=== PATIENT | female | born 1960 | race African-American/Black ===

== ENCOUNTER → 2016-09-23 | Outpatient (CLI) | payer OTHER ==
[~2016-09-23] MED LIST: FURO1TAB62 PO; HYDR-3534 PO; LOSA25TA PO; MEDR4PAK PO; ROBA500T PO; SIMV40TA PO
[2016-09-23 07:14] LABS: BICARBONATE 29.9 MEQ/L (21.0-32.0); POTASSIUM 4.5 MEQ/L (3.5-5.1)
== END ==
LOC: CLAB 06:27
PROVIDERS: ATTEND Family Medicine
DX: I10 Essential (primary) hypertension (principal); Z85.528 Personal history of other malignant neoplasm of kidney
CPT/HCPCS: 36415; 80048

== ENCOUNTER 2016-09-30 08:33 | Emergency (ER) | payer OTHER ==
[~2016-09-30] VITALS: Ht 180.3 cm; Wt 95.0 kg
[~2016-09-30 08:33] MED LIST changes: -HYDR-3534 PO; -MEDR4PAK PO; -ROBA500T PO
[2016-09-30 08:34] VITALS: BP 158/93; PULSE 65; RESP 16; TEMP 98.1; O2SAT 97
--- NOTE | 2016-09-30 08:59 | PD ---
HPI Chief Complaint: Back/ Neck Pain or Injury Time Seen by Provider: 08:59 Travel History International Travel<30 days: No Contact w/Intl Traveler<30days: No Traveled to known affect area: No History of Present Illness HPI 56-year-old female presents to the emergency department with complaint of right- sided low back pain for about one week. She has history of chronic low back pain from an incident a couple years ago from falling. Her back pain is consistent with past exacerbations. She says she does heavy lifting for work which most likely weeks as her pain. Pain radiates down her right buttocks and back of leg She denies slip, fall, traumatic injury. Denies encopresis, incontinence, saddle anesthesias. Denies IV drug use. Denies cancer. Denies fever, chills, nausea, vomiting, abdominal pain. Denies dysuria, but reports urinary frequency that she noticed more last night. Denies paresthesias, loss of sensation, decreased range of motion, decreased strength to bilateral lower extremities. Has taken Tylenol with minimal relief of symptoms. Says she only has one kidney, secondary to kidney cancer, and can only take Tylenol. Pain is aggravated with certain movements. Pain is decreased while at rest. History of hypertension. Allergies to diclofenac. No other modifying factors or associated signs and symptoms. PFSH Past Medical History Arthritis: Yes Autoimmune Disease: No Anxiety: No Depression: No Heart Rhythm Problems: Yes Cancer: Yes (HX OF MASS ON RIGHT KIDNEY) Cardiac Catheterization: No Cardiovascular Problems: Yes High Cholesterol: Yes Chest Pain: Yes Diabetes: No Diminished Hearing: No Endocrine: No Gastrointestinal Disorders: No Glaucoma: No Genitourinary: Yes (MASS RIGHT KIDNEY) Hepatitis: No Hiatal Hernia: No Hypertension: Yes Musculoskeletal: Yes Neurologic: No Reproductive: No Respiratory: Yes (BRONCHITIS) Integumentary: No Immunizations Current: Yes Sickle Cell Disease: No Sleep Apnea: Yes (CPAP AT NIGHT) Thyroid Disease: No Tetanus Vaccination: < 5 Years PNEUMOCCOCAL Vaccine (Year): 1 ?: Not Menopausal: Yes : 2 Para: 2 Miscarriage: 0 : 0 Tubal Ligation: Yes Past Surgical History Coronary Artery Bypass Graft: No Gynecologic Surgery: Yes (TUBAL LIGATION ) Thoracic Surgery: No Other Surgery: Yes (R KIDNEY REMOVED) Family History Family Myocardial Infarction: Yes Social History Alcohol Use: Yes (SELDOM) Tobacco Use: No Substance Use: No Allergies-Medications (Allergen,Severity, Reaction): Coded Allergies: Diclofenac (Verified Allergy, Intermediate, ITCHING, 09/30/16) Reported Meds & Prescriptions Reported Meds & Active Scripts Active Robaxin (Methocarbamol) 500 Mg Tab 500 Mg PO QID PRN Simvastatin 40 Mg Tab 40 Mg PO HS Losartan (Losartan Potassium) 25 Mg Tab 25 Mg PO DAILY Review of Systems Except as stated in HPI: all other systems reviewed are Neg Physical Exam Narrative GENERAL: Well-nourished, well-developed female patient, in no acute distress SKIN: Warm and dry. HEAD: Atraumatic. Normocephalic. EYES: Pupils equal and round. No scleral icterus. No injection or drainage. ENT: Mucosa pink and moist. Airway patent. NECK: Trachea midline. CARDIOVASCULAR: Regular rate. RESPIRATORY: No accessory muscle use. GASTROINTESTINAL: Abdomen soft, non-tender, nondistended. Positive bowel sounds. No hepato-splenomegaly, or palpable masses. No guarding. MUSCULOSKELETAL: Bilateral lower extremities supple and non-tense with 2+ pedal pulses and sensory intact; with full range of motion and 5/5 strength. Active dorsiflexion and extension of bilateral feet. Right straight leg raise is positive for low back pain. Left straight leg raise is negative for low back pain. Ambulatory with normal gait. Sitting up in bed at 90. No obvious deformities. No clubbing. No cyanosis. No edema. BACK: No CVA tenderness. No midline point tenderness on palpation of the lumbar spine. Tenderness on palpation of right paraspinal lumbar musculature area and right iliosacral area. No obvious deformities. NEUROLOGICAL: Awake and alert. Oriented 3. No obvious cranial nerve deficits. Motor grossly within normal limits. Normal speech. Moves all extremities. 5/5 strength to all extremities. Sensory intact. PSYCHIATRIC: Appropriate mood and affect; insight and judgment normal. Data Data Last Documented VS Vital Signs Date Time Temp Pulse Resp B/P Pulse Ox O2 Delivery O2 Flow Rate FiO2 09/30/16 08:34 98.1 65 16 158/93 97 Room Air Orders Orphenadrine Inj (Norflex Inj) (09/30/16 09:00) Urinalysis - C+S If Indicated (09/30/16 08:59) Acetaminophen (Tylenol) (09/30/16 09:00) Labs Laboratory Tests Test 09/30/16 09:15 Urine Color YELLOW Urine Turbidity CLEAR Urine pH 6.0 Urine Specific [place] 1.019 Urine Protein NEG mg/dL Urine Glucose (UA) NEG mg/dL Urine Ketones NEG mg/dL Urine Occult Blood NEG Urine Nitrite NEG Urine Bilirubin NEG Urine Urobilinogen LESS THAN 2.0 MG/DL Urine Leukocyte Esterase TRACE Urine RBC 1 /hpf Urine WBC 2 /hpf Urine Squamous Epithelial 2 /hpf Cells Microscopic Urinalysis Comment CULT NOT INDICATED MDM Medical Decision Making Medical Screen Exam Complete: Yes Emergency Medical Condition: Yes Medical Record Reviewed: Yes Differential Diagnosis Acute exacerbation of chronic low back pain, sciatica, low back strain, muscle spasm of the back Narrative Course 56-year-old female with acute exacerbation of chronic low back pain and right- sided sciatica. Denies traumatic injury, fall. Reports heavy lifting. Denies encopresis, incontinence, saddle anesthesia. The patient is ambulatory with a normal gait in the hallway. She also has urinary frequency. No midline point tenderness on palpation of the lumbar spine. Norflex ordered. Urinalysis ordered. 1000: Urinalysis without signs of infection. Robaxin prescribed for home. Instructed patient to take Tylenol as directed and as needed for low back pain. Patient verbalizes understanding and agreement with treatment plan. Patient is medically cleared and stable for discharge. Discussed reasons to return to the emergency department. Instructed patient to follow up with primary care provider. Patient agrees with treatment plan. The patients vital signs are stable and the patient is stable for outpatient follow-up and treatment. Patient discharged home, stable and in no acute distress. Diagnosis Primary Impression: Acute exacerbation of chronic low back pain Additional Impressions: Right sided sciatica Low back strain Qualified Code: S39.012A - Low back strain, initial encounter Referrals: Primary Care Physician Patient Instructions: Acute Low Back Pain (ED), General Instructions, Low Back Strain (ED), Sciatica (ED) Departure Forms: Tests/Procedures, Work Release Enter return to work date: Oct 03, 2016 Additional Instructions: Tylenol as directed and as needed for pain Robaxin as prescribed and as needed for muscle spasms Heating pad and/or ice to affected area to reduce pain Avoid aggravating activities; increase activity as tolerated Follow-up with primary care provider Return to emergency department immediately with worsening of symptoms Med/Other Pt SpecificInfo: Prescription(s) given Scripts Methocarbamol (Robaxin)500 Mg Aut656 Mg PO QID PRN (MUSCLE SPASM) #30 TAB Ref 0 Prov:Gretchen Greco 09/30/16 Disposition: 01 DISCHARGE HOME Condition: Stable Gretchen Greco Sep 30, 2016 08:59
[2016-09-30] MEDS ORDERED: ORPHENADRINE INJ 60 MG/2 ML AMP IM ONE (09:00)
[2016-09-30] MEDS ORDERED: ACETAMINOPHEN 325 MG TAB PO ONE (09:00)
[2016-09-30] MEDS ORDERED: ROBA500T PO (09:15)
[2016-09-30 09:50] LABS: BLOOD, URINE NEG (NEG); COMMENT (UR) CULT NOT INDICATED; CULTURE IF INDICATED CULT NOT INDICATED; GLUCOSE,URINE NEG (NEG); KETONE, URINE NEG (NEG); NITRITE,URINE NEG (NEG); SQUAMOUS EPITHELIAL CELL URINE 2 /hpf (0-5); URINE COLOR YELLOW (YELLW/STRAW)
[2016-10-01] MEDS ORDERED: HYDR-3534 PO (14:55)
[2016-10-09] MEDS ORDERED: MEDR4PAK PO (09:42)
== END 2016-09-30 10:18 | disposition home or self-care (01) ==
LOC: NEPB 08:33
DX: M54.5 Low back pain (principal); S39.012A Strain of muscle, fascia and tendon of lower back, initial encounter; G89.29 Other chronic pain; M54.31 Sciatica, right side; R35.0 Frequency of micturition; I10 Essential (primary) hypertension; X50.0XXA Overexertion from strenuous movement or load, initial encounter; Y93.89 Activity, other specified; Y99.0 Civilian activity done for income or pay
CPT/HCPCS: 81001; 96372; 99283; J2360

== ENCOUNTER 2017-01-30 19:56 | Emergency (ER) | payer OTHER ==
[~2017-01-30] VITALS: Ht 160 cm; Wt 97.5 kg
[~2017-01-30 19:56] MED LIST changes: -FURO1TAB62 PO; +HYDR-3534 PO; +MEDR4PAK PO; +ROBA500T PO
[2017-01-30 19:58] VITALS: BP 179/111; PULSE 66; RESP 16; TEMP 98.2; O2SAT 97
--- NOTE | 2017-01-30 20:27 | PD ---
HPI Chief Complaint: Eye Problems/Injury Time Seen by Provider: 20:11 Travel History International Travel<30 days: No Contact w/Intl Traveler<30days: No Traveled to known affect area: No History of Present Illness HPI 56-year-old female complains of right eye irritation. Patient accidentally exposed to a mixture of water and [place]. Patient was mixing the solution when 1 drop splashed into her eye. Patient immediately washed the right eye with water for 5 minutes prior to arrival to ED. Patient states that she has some mild irritation to right eye. Patient denies any visual change. PFSH Past Medical History Arthritis: Yes Autoimmune Disease: No Anxiety: No Depression: No Heart Rhythm Problems: Yes Cancer: Yes (HX OF MASS ON RIGHT KIDNEY) Cardiac Catheterization: No Cardiovascular Problems: Yes (angina) High Cholesterol: Yes Chest Pain: Yes Diabetes: No Diminished Hearing: No Endocrine: No Gastrointestinal Disorders: No Glaucoma: No Genitourinary: Yes (MASS RIGHT KIDNEY) Hepatitis: No Hiatal Hernia: No Hypertension: Yes Musculoskeletal: Yes Neurologic: No Reproductive: No Respiratory: Yes (BRONCHITIS) Integumentary: No Immunizations Current: Yes Sickle Cell Disease: No Sleep Apnea: Yes (CPAP AT NIGHT) Thyroid Disease: No Tetanus Vaccination: < 5 Years Influenza Vaccination: Yes PNEUMOCCOCAL Vaccine (Year): 1 ?: Not Menopausal: Yes : 2 Para: 2 Miscarriage: 0 : 0 Tubal Ligation: Yes Past Surgical History Coronary Artery Bypass Graft: No Gynecologic Surgery: Yes (TUBAL LIGATION ) Thoracic Surgery: No Other Surgery: Yes (R KIDNEY REMOVED) Family History Family Myocardial Infarction: Yes Social History Alcohol Use: Yes (SELDOM) Tobacco Use: No Substance Use: No Allergies-Medications (Allergen,Severity, Reaction): Coded Allergies: Diclofenac (Verified Allergy, Intermediate, ITCHING, 10/09/16) Reported Meds & Prescriptions Reported Meds & Active Scripts Active Robaxin (Methocarbamol) 500 Mg Tab 500 Mg PO QID PRN Losartan (Losartan Potassium) 25 Mg Tab 25 Mg PO DAILY Review of Systems General / Constitutional: No: Fever Eyes: No: Visual changes HENT: No: Headaches Cardiovascular: No: Chest Pain or Discomfort Respiratory: No: Shortness of Breath Gastrointestinal: No: Abdominal Pain Genitourinary: No: Dysuria Musculoskeletal: No: Pain Skin: No Rash Neurologic: No: Weakness Psychiatric: No: Depression Endocrine: No: Polydipsia Hematologic/Lymphatic: No: Easy Bruising Physical Exam Narrative GENERAL: Well-nourished, well-developed patient. SKIN: Focused skin assessment warm/dry. HEAD: Normocephalic. EYES: No scleral icterus. No injection or drainage. Right eye stained with fluoresceins stain reveals no uptake. NECK: Supple, trachea midline. No JVD or lymphadenopathy. CARDIOVASCULAR: Regular rate and rhythm without murmurs, gallops, or rubs. RESPIRATORY: Breath sounds equal bilaterally. No accessory muscle use. GASTROINTESTINAL: Abdomen soft, non-tender, nondistended. MUSCULOSKELETAL: No cyanosis, or edema. BACK: Nontender without obvious deformity. No CVA tenderness. Data Data Last Documented VS Vital Signs Date Time Temp Pulse Resp B/P Pulse Ox O2 Delivery O2 Flow Rate FiO2 01/30/17 19:58 98.2 66 16 179/111 97 Room Air MDM Medical Decision Making Medical Screen Exam Complete: Yes Emergency Medical Condition: Yes Differential Diagnosis Differential diagnosis including chemical irritation, corneal abrasion, corneal ulcer. Narrative Course 56-year-old female was exposure solution of [place] away and water the right eye. Patient washed the right eye 5 minutes with water prior to arrival. Patient only has mild right eye irritation. Examination reveals no corneal abrasion or uptake with fluorescein stain. Right eye was irrigated with saline solution. Diagnosis Primary Impression: Irritation of right eye Additional Instructions: Return as needed. Med/Other Pt SpecificInfo: No Change to Meds Disposition: 01 DISCHARGE HOME Condition: Stable Ousmane Douglass MD Jan 30, 2017 20:27
[2017-01-30] MEDS ORDERED: POLYMYXIN/TRIMETHOPRIM OPHT SOLN 10 ML BTL EACH EYE ONE (20:30)
== END 2017-01-30 21:02 | disposition home or self-care (01) ==
LOC: NEPD 19:56
DX: T65.891A Toxic effect of other specified substances, accidental (unintentional), initial encounter (principal); T26.91XA Corrosion of right eye and adnexa, part unspecified, initial encounter; Y93.G9 Activity, other involving cooking and grilling; Y92.233 Cafeteria of hospital as the place of occurrence of the external cause; Y99.0 Civilian activity done for income or pay
CPT/HCPCS: 99283

== ENCOUNTER 2017-07-23 12:30 | Emergency (ER) | payer OTHER ==
[~2017-07-23] VITALS: Ht 160 cm; Wt 96.0 kg
[~2017-07-23 12:30] MED LIST changes: +FLUT1SPR5 EACH NARE; -HYDR-3534 PO; -MEDR4PAK PO; -SIMV40TA PO
[2017-07-23 12:42] VITALS: BP 135/86; PULSE 65; RESP 14; TEMP 98.2; O2SAT 98
[2017-07-23 13:29] LABS: AUTOMATED NEUTROPHIL # 2.9 TH/MM3 (1.8-7.7); BASOPHIL % 0.7 % (0.0-2.0); EOSINOPHIL # 0.1 TH/MM3 (0-0.4); EOSINOPHIL % 2.5 % (0.0-4.0); HEMATOCRIT 38.4 % (35.0-46.0); HEMOGLOBIN 13.2 GM/DL (11.6-15.3); LYMPH % 37.2 % (9.0-44.0); LYMPHOCYTE # 2.2 TH/MM3 (1.0-4.8); MEAN CELL VOLUME 76.1 FL (80.0-100.0); MEAN CORPUSCULAR HEMOGLOBIN 26.1 PG (27.0-34.0); MEAN CORPUSCULAR HGB CONC 34.3 % (32.0-36.0); MEAN PLATELET VOLUME 8.7 FL (7.0-11.0); MONO % 10.7 % (0.0-8.0); MONOCYTE # 0.6 TH/MM3 (0-0.9); NEUT % 48.9 % (16.0-70.0); PLATELET COUNT 239 TH/MM3 (150-450); RED BLOOD COUNT 5.05 MIL/MM3 (4.00-5.30); RED CELL DISTRIBUTION WIDTH 15.9 % (11.6-17.2); WHITE BLOOD COUNT 5.9 TH/MM3 (4.0-11.0)
[2017-07-23 13:47] LABS: ALBUMIN 3.7 GM/DL (3.4-5.0); AST (GOT) 20 U/L (15-37); BICARBONATE 28.4 MEQ/L (21.0-32.0); BLOOD UREA NITROGEN 20 MG/DL (7-18); CALCIUM 9.2 MG/DL (8.5-10.1); CHLORIDE 103 MEQ/L (98-107); CREATININE 1.12 MG/DL (0.50-1.00); GLOMERULAR FILTRATION RATE 61 ML/MIN (>89); GLUCOSE,RANDOM 74 MG/DL (74-106); SODIUM (NA) 138 MEQ/L (136-145)
[2017-07-23 13:49] LABS: ALT (GPT) 20 U/L (10-53)
[2017-07-23 13:51] LABS: ALKALINE PHOSPHATASE 85 U/L (45-117); TOTAL BILIRUBIN ADULT 0.4 MG/DL (0.2-1.0); TOTAL PROTEIN 8.4 GM/DL (6.4-8.2)
[2017-07-23 14:15] VITALS: BP 170/100; PULSE 65; RESP 17; O2SAT 100
[2017-07-23] MEDS ORDERED: PROCHLORPERAZINE MALEATE 10 MG TAB PO ONE (14:30)
[2017-07-23] MEDS ORDERED: diphenhydrAMINE HCL 25 MG CAP PO ONE (14:30)
--- NOTE | 2017-07-23 14:32 | PD ---
HPI Chief Complaint: Dizziness Time Seen by Provider: 14:02 Travel History International Travel<30 days: No Contact w/Intl Traveler<30days: No Traveled to known affect area: No History of Present Illness HPI Patient 57-year-old female presents emergency department for evaluation of bifrontal headache for the past few days waxing and waning. She is also noticed blood pressures been elevated for the past few days as well. States she just didn't feel well decided to come in and be seen. Denies any focalized weakness visual difficulties nausea vomiting sudden presentation anticoagulation history. Denies chest pain shortness of breath. She states symptoms are moderate, waxing and waning over the past few days, associated signs symptoms and context as above. PFSH Past Medical History Arthritis: Yes Autoimmune Disease: No Anxiety: No Depression: No Heart Rhythm Problems: Yes Cancer: Yes (HX OF MASS ON RIGHT KIDNEY) Cardiac Catheterization: No Cardiovascular Problems: Yes (HTN) High Cholesterol: Yes Chest Pain: Yes Diabetes: No Diminished Hearing: No Endocrine: No Gastrointestinal Disorders: No Glaucoma: No Genitourinary: Yes (MASS RIGHT KIDNEY) Hepatitis: No Hiatal Hernia: No Hypertension: Yes Musculoskeletal: Yes Neurologic: No Reproductive: No Respiratory: Yes (BRONCHITIS) Integumentary: No Immunizations Current: Yes Sickle Cell Disease: No Sleep Apnea: Yes (CPAP AT NIGHT) Thyroid Disease: No PNEUMOCCOCAL Vaccine (Year): 1 ?: Not Menopausal: Yes : 2 Para: 2 Miscarriage: 0 : 0 Tubal Ligation: Yes Past Surgical History Coronary Artery Bypass Graft: No Gynecologic Surgery: Yes (TUBAL LIGATION ) Other Surgery: Yes (R KIDNEY REMOVED) Family History Family Myocardial Infarction: Yes Social History Alcohol Use: Yes (occasionally) Tobacco Use: No Substance Use: No Allergies-Medications (Allergen,Severity, Reaction): Coded Allergies: diclofenac (Unverified Allergy, Intermediate, ITCHING, 07/23/17) Reported Meds & Prescriptions Reported Meds & Active Scripts Active Losartan (Losartan Potassium) 25 Mg Tab 25 Mg PO DAILY Robaxin (Methocarbamol) 500 Mg Tab 500 Mg PO QID PRN Review of Systems Except as stated in HPI: all other systems reviewed are Neg Physical Exam Narrative GENERAL: Well-developed well-nourished no obvious distress SKIN: Focused skin assessment warm/dry. HEAD: Atraumatic. Normocephalic. EYES: Pupils equal and round. No scleral icterus. No injection or drainage. ENT: No nasal bleeding or discharge. Mucous membranes pink and moist. NECK: Trachea midline. No JVD. CARDIOVASCULAR: Regular rate and rhythm. No murmur appreciated. RESPIRATORY: No accessory muscle use. Clear to auscultation. Breath sounds equal bilaterally. GASTROINTESTINAL: Abdomen soft, non-tender, nondistended. Hepatic and splenic margins not palpable. MUSCULOSKELETAL: No obvious deformities. No clubbing. No cyanosis. No edema. NEUROLOGICAL: Awake and alert. Cranial nerves II through XII are grossly intact and nonfocal, 5 out of 5 strength in all 4 extremities, and relates even narrow based gait. PSYCHIATRIC: Appropriate mood and affect; insight and judgment normal. Data Data Last Documented VS Vital Signs Date Time Temp Pulse Resp B/P (MAP) Pulse Ox O2 Delivery O2 Flow Rate FiO2 07/23/17 16:50 07/23/17 14:15 65 17 100 07/23/17 12:42 98.2 Orders Orders Electrocardiogram (07/23/17 ) Complete Blood Count With Diff (07/23/17 12:54) Comprehensive Metabolic Panel (07/23/17 12:54) Ct Brain W/O Iv Contrast(Rout) (07/23/17 ) Diphenhydramine (Benadryl) (07/23/17 14:30) Prochlorperazine Maleate (Compazine) (07/23/17 14:30) Ed Discharge Order (07/23/17 16:19) Labs Laboratory Tests Test 07/23/17 13:07 White Blood Count 5.9 TH/MM3 Red Blood Count 5.05 MIL/MM3 Hemoglobin 13.2 GM/DL Hematocrit 38.4 % Mean Corpuscular Volume 76.1 FL Mean Corpuscular Hemoglobin 26.1 PG Mean Corpuscular Hemoglobin Concent 34.3 % Red Cell Distribution Width 15.9 % Platelet Count 239 TH/MM3 Mean Platelet Volume 8.7 FL Neutrophils (%) (Auto) 48.9 % Lymphocytes (%) (Auto) 37.2 % Monocytes (%) (Auto) 10.7 % Eosinophils (%) (Auto) 2.5 % Basophils (%) (Auto) 0.7 % Neutrophils # (Auto) 2.9 TH/MM3 Lymphocytes # (Auto) 2.2 TH/MM3 Monocytes # (Auto) 0.6 TH/MM3 Eosinophils # (Auto) 0.1 TH/MM3 Basophils # (Auto) 0.0 TH/MM3 CBC Comment DIFF FINAL Differential Comment Blood Urea Nitrogen 20 MG/DL Creatinine 1.12 MG/DL Random Glucose 74 MG/DL Total Protein 8.4 GM/DL Albumin 3.7 GM/DL Calcium Level 9.2 MG/DL Alkaline Phosphatase 85 U/L Aspartate Amino Transf (AST/SGOT) 20 U/L Alanine Aminotransferase (ALT/SGPT) 20 U/L Total Bilirubin 0.4 MG/DL Sodium Level 138 MEQ/L Potassium Level 3.8 MEQ/L Chloride Level 103 MEQ/L Carbon Dioxide Level 28.4 MEQ/L Anion Gap 7 MEQ/L Estimat Glomerular Filtration Rate 61 ML/MIN MDM Medical Decision Making Medical Screen Exam Complete: Yes Emergency Medical Condition: Yes Differential Diagnosis Subarachnoid hemorrhage unlikely, sinus headache, migraine headache, cluster headache, tension headache. Narrative Course Patient roomed emergency department, blood pressure mildly elevated, given medication for her headache and is feeling better, and reassessment sleeping soundly in no obvious distress. Basic lab work reassuring, CT head negative. Discussed with the patient follow-up with primary care physician further blood pressure management. She has no red flecks and symptoms for headache is stable for discharge. Discussed return to ED criteria. Diagnosis Primary Impression: Headache Qualified Codes: R51 - Headache Additional Impression: Hypertension Disposition: 01 DISCHARGE HOME Condition: Stable Dakota Hui MD Jul 23, 2017 14:32
--- NOTE | 2017-07-23 14:58 | RADRPT ---
EXAM DATE/TIME: 07/23/2017 14:53 [facility] COMPARISON: No previous studies available for comparison. INDICATIONS : Headache and dizziness. RADIATION DOSE: 37.69 CTDIvol (mGy) MEDICAL HISTORY : Hypertension. Kidney cancer SURGICAL HISTORY : Nephrectomy ENCOUNTER: Initial ACUITY: 3 days PAIN SCALE: 5/10 LOCATION: cranial TECHNIQUE: Multiple contiguous axial images were obtained of the head. Using automated exposure control and adj ustment of the mA and/or kV according to patient size, radiation dose was kept as low as reasonably a chievable to obtain optimal diagnostic quality images. DICOM format image data is available electro nically for review and comparison. FINDINGS: CEREBRUM: The ventricles are normal for age. No evidence of midline shift, mass lesion, hemorrhage or acute in farction. No extra-axial fluid collections are seen. POSTERIOR FOSSA: The cerebellum and brainstem are intact. The 4th ventricle is midline. The cerebellopontine angle i s unremarkable. EXTRACRANIAL: The visualized portion of the orbits is intact. SKULL: The calvaria is intact. No evidence of skull fracture. CONCLUSION: Normal examination. Brendon Samuels MD on July 23, 2017 at 14:55 Board Certified Radiologist. This report was verified electronically.
--- NOTE | 2017-07-24 14:15 | EKG ---
Date Performed: 07/23/2017 Time Performed: 12:59:24 PTAGE: 57 years EKG: Sinus rhythm POSSIBLE LEFT ATRIAL ENLARGEMENT BORDERLINE ECG Compared to PREVIOUS TRACING , sinus rate has increased. PREVIOUS TRACIN12/16/2015 10.40 DOCTOR: Salvador Hallman Interpretating Date/Time 07/24/2017 14:14:04
== END 2017-07-23 16:51 | disposition home or self-care (01) ==
LOC: NEPE 12:30
DX: R51 Headache (principal); I10 Essential (primary) hypertension; R53.81 Other malaise; R94.31 Abnormal electrocardiogram [ECG] [EKG]; E78.00 Pure hypercholesterolemia, unspecified; M19.90 Unspecified osteoarthritis, unspecified site; G47.30 Sleep apnea, unspecified; Z87.448 Personal history of other diseases of urinary system; Z87.39 Personal history of other diseases of the musculoskeletal system and connective tissue
CPT/HCPCS: 70450; 80053; 85025; 93005; 99285; Q0164

== ENCOUNTER → 2017-08-26 | Outpatient (CLI) | payer OTHER ==
[~2017-08-26] MED LIST changes: -FLUT1SPR5 EACH NARE
--- NOTE | 2017-08-26 11:30 | RADRPT ---
EXAM DATE/TIME: 08/26/2017 10:33 [facility] COMPARISON: No previous studies available for comparison. INDICATIONS : Pre op. Evaluate for pneumonia, pneumothorax, or communicable diseases. MEDICAL HISTORY : Hypertension. Kidney cancer SURGICAL HISTORY : Nephrectomy. ENCOUNTER: Initial ACUITY: 1 day PAIN SCORE: 0/10 LOCATION: Bilateral chest FINDINGS: PA and lateral views of the chest demonstrate the lungs to be symmetrically aerated without evidence of mass, infiltrate or effusion. The cardiomediastinal contours are unremarkable. Mild degenerative changes in the thoracic spine. CONCLUSION: No acute cardiopulmonary disease. Danny Fajardo MD on August 26, 2017 at 11:27 Board Certified Radiologist. This report was verified electronically.
[2017-08-26 12:54] LABS: AUTOMATED NEUTROPHIL # 2.2 TH/MM3 (1.8-7.7); BASOPHIL % 0.6 % (0.0-2.0); EOSINOPHIL # 0.2 TH/MM3 (0-0.4); EOSINOPHIL % 3.1 % (0.0-4.0); HEMATOCRIT 39.7 % (35.0-46.0); HEMOGLOBIN 13.8 GM/DL (11.6-15.3); LYMPH % 43.8 % (9.0-44.0); LYMPHOCYTE # 2.2 TH/MM3 (1.0-4.8); MEAN CELL VOLUME 75.5 FL (80.0-100.0); MEAN CORPUSCULAR HEMOGLOBIN 26.2 PG (27.0-34.0); MEAN CORPUSCULAR HGB CONC 34.7 % (32.0-36.0); MEAN PLATELET VOLUME 9.3 FL (7.0-11.0); MONOCYTE # 0.5 TH/MM3 (0-0.9); NEUT % 42.5 % (16.0-70.0); PLATELET COUNT 249 TH/MM3 (150-450); RED BLOOD COUNT 5.26 MIL/MM3 (4.00-5.30); RED CELL DISTRIBUTION WIDTH 15.4 % (11.6-17.2); WHITE BLOOD COUNT 5.1 TH/MM3 (4.0-11.0)
[2017-08-26 13:09] LABS: ALBUMIN 3.6 GM/DL (3.4-5.0); AST (GOT) 17 U/L (15-37); BICARBONATE 30.8 MEQ/L (21.0-32.0); BLOOD UREA NITROGEN 18 MG/DL (7-18); CALCIUM 9.5 MG/DL (8.5-10.1); CHLORIDE 103 MEQ/L (98-107); CREATININE 1.16 MG/DL (0.50-1.00); GLOMERULAR FILTRATION RATE 58 ML/MIN (>89); GLUCOSE,FASTING 73 MG/DL (74-99); SODIUM (NA) 140 MEQ/L (136-145)
[2017-08-26 13:10] LABS: ALT (GPT) 21 U/L (10-53)
[2017-08-26 13:12] LABS: ALKALINE PHOSPHATASE 87 U/L (45-117); TOTAL BILIRUBIN ADULT 0.5 MG/DL (0.2-1.0); TOTAL PROTEIN 8.4 GM/DL (6.4-8.2)
[2017-08-26 13:19] LABS: PROTHROMBIN TIME - PATIENT 10.4 SEC (9.8-11.6)
== END ==
LOC: CPRE 09:49
PROVIDERS: ATTEND Obstetrics & Gynecology Gynecologic Oncology
DX: Z01.810 Encounter for preprocedural cardiovascular examination (principal); Z01.811 Encounter for preprocedural respiratory examination; Z01.812 Encounter for preprocedural laboratory examination; Z01.818 Encounter for other preprocedural examination; N90.3 Dysplasia of vulva, unspecified
CPT/HCPCS: 36415; 71046; 80053; 85025; 85610; 85730

== ENCOUNTER → 2017-08-30 | Day surgery (SDC) | payer OTHER ==
[~2017-08-30] VITALS: Ht 160 cm; Wt 93.7 kg
[~2017-08-30] MED LIST changes: +*MEPERIDINE 25 MG INJ VIAL PERIprocedural Use ONLY ONE; +ACETAMINOPHEN 1000 MG/100 ML 100 ML IV ONE; +CHLORHEXIDINE GLUCONATE 2 % 1 PACK (2 CLOTHS) TOPICAL PRN; +DEXAMETHASONE SOD PHOS 4 MG/ML VIAL IV ONE; +DO NOT ADM ANY ANTICOAGULANT DRUGS PRN; +ESTROGENS CONJUGATED VAG CREA 15 APPL/30 GM TUBE ONE; +GLYCOPYRROLATE 1 MG/5 ML SYRINGE IV PUSH ONE; +LACTATED RINGER'S 1000 ML IV PRN; +LIDOCAINE 1%/EPINEPHrine 1:100,000 SOLN 30 ML VIAL ONE; +LIDOCAINE HCL 1% PF 5 ML SYRINGE OTHER ONE; +METOPROLOL TARTRATE 25 MG TAB PO PRN; +MIDAZOLAM HCL 2 MG/2 ML VIAL ONE; +NEOSTIGMINE 5 MG/5 ML SYRINGE IV PUSH ONE; +ONDANSETRON HCL 4 MG/2 ML VIAL IV PUSH ONE; +PHENYLEPH/NS 1000 MCG/10 ML SYR IV ONE; +POVIDONE IODINE 5% (ANTISEPSIS KIT) 4 APPLICATIONS EACH NARE PRN; +PROPOFOL 200 MG/20 ML AMP IV ONE; +SILVER NITR/POTASSIUM NITRATE APPLICATORS ONE; +SODIUM CHLORID 0.9% 500 ML IV PRN; +VASOPRESSIN 20 UNITS/ML VIAL ONE; +ceFAZolin INJ 1,000 MG VIAL IV ONE; +ePHEDrine/NS 25 MG/5 ML SYRINGE IV ONE; +oxyCODONE/ACETAMINOPHEN 5 MG/325 MG TAB PO PRN
[2017-08-30 10:28] VITALS: BP 138/90; PULSE 73; RESP 20; TEMP 97.7; O2SAT 99
--- NOTE | 2017-08-30 17:33 | MP ---
cc: KISHAN SCHMIDT MOLPUS, KELLY L. MD MCINNES, MALLORY A. MD DATE OF SURGERY: 08/30/2017 PREOPERATIVE DIAGNOSIS: Positive endocervical curetting for high-grade dysplasia. POSTOPERATIVE DIAGNOSIS: Positive endocervical curetting for high-grade dysplasia. OPERATION: Examination under anesthesia, cold knife conization of cervix, endocervical curettings, endometrial curettings (fractional dilation and curettage). SURGEON Monica Narvaez MD. 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 ANESTHESIA: Laryngeal mask anesthesia ESTIMATED BLOOD LOSS Less than 20 cc HISTORY A 57-year-old female who went for routine Pap smear showed abnormality. Subsequently went for colposcopy. There were no external lesions seen but endocervical curetting showed moderate dysplasia. She was seen in our office, counseled, and seen again in the preop holding area where the findings were reviewed. The recommended steps were discussed. Questions were asked and answered. She expressed good understanding and agrees, and would like to move forward with surgical procedure. FINDINGS On exam under anesthesia there is no inguinal adenopathy. External genitalia without mass or lesion. The cervix grossly appears normal although the tissue was firm and circumferentially smooth. There is no overt neoplasia. After application of dilute acetic acid, there was no overt acetowhite epithelium or vascular changes. The uterus and cervix are mobile. There is no obvious parametrial nodularity or thickening. The uterus is slightly retroverted sounds to approximately between 9 and 10 cm. On curetting of the endocervix, there was a scant amount of tissue obtained. On curetting of the endometrium, there is a scant amount of endometrium obtained except for a small subcentimeter polyp from the left anterior wall of the uterus. At the conclusion of the case, all sites were hemostatic. All surfaces of the endometrium were gritty on feedback with curetting. PROCEDURE She was taken to the operating room placed in dorsal lithotomy position. After laryngeal mask anesthesia was administered time-out was undertaken. She was identified by sight, recognition and hospital ID bracelet and the proposed procedure was reviewed and confirmed. She was carefully positioned in Minh stirrups, padded, prepped and draped in sterile fashion, after exam under anesthesia was performed with findings as described above. The cervix was grasped. Dilute acetic acid was applied. 0 Vicryl sutures were placed at a [id number] fashion in the 3 o'clock position on the lateral wall of the cervix, and the 9 o'clock position lateral wall of the cervix for hemostasis and countertraction. Lidocaine epinephrine was injected circumferentially into the ectocervix and a small dilator and uterine sound were used to determine the axis of the endocervical canal and the depth of the endometrial cavity. With countertraction a scalpel was used circumferentially to perform a conization including a transformation zone angling in to remove a generous portion of the endocervical canal and then the specimen was completed to its removal with sharp dissection using Leos scissors. The specimen was removed labeled as cervix conization. Next endocervical curettings were obtained circumferentially, multiple passes, scant to moderate of tissue obtained on endocervical curetting. Next the cervix was further dilated to allow for a medium size curet and endometrial curetting was performed. Multiple passes circumferentially with findings as described above. All the surfaces were gritty at the completion of curetting. The area was irrigated. The cone bed was rendered hemostatic with cautery and then topical Monsel's solution, and the tenaculum was removed. Tenaculum sites were rendered hemostatic with Monsel's solution as well. The vaginal canal was clean. There were no remaining foreign objects in the vagina. Preliminary and final counts were correct. She was returned to dorsal supine position pending reversal of anesthesia when I left the operating room to precede her to the Post Anesthesia Care Unit and to speak to a family member who was waiting. MD MALCOM Oliveira/PERNELL /8:09 AM /5:01 PM
== END | disposition home or self-care (01) ==
LOC: HSDC 05:25
PROVIDERS: ATTEND Obstetrics & Gynecology Gynecologic Oncology
DX: R87.613 High grade squamous intraepithelial lesion on cytologic smear of cervix (HGSIL) (principal); I10 Essential (primary) hypertension
CPT/HCPCS: 00940; 57520; 86850; 86900; 86901; 88305; 88307; J0131; J0690; J1100; J2175; J2250; J2370; J2405; J2710; J3010; J7120

== ENCOUNTER 2017-09-28 19:59 | Emergency (ER) | payer OTHER ==
[~2017-09-28] VITALS: Ht 160 cm; Wt 89.5 kg
[~2017-09-28 19:59] MED LIST changes: -*MEPERIDINE 25 MG INJ VIAL PERIprocedural Use ONLY ONE; -ACETAMINOPHEN 1000 MG/100 ML 100 ML IV ONE; -CHLORHEXIDINE GLUCONATE 2 % 1 PACK (2 CLOTHS) TOPICAL PRN; -DEXAMETHASONE SOD PHOS 4 MG/ML VIAL IV ONE; -DO NOT ADM ANY ANTICOAGULANT DRUGS PRN; -ESTROGENS CONJUGATED VAG CREA 15 APPL/30 GM TUBE ONE; -GLYCOPYRROLATE 1 MG/5 ML SYRINGE IV PUSH ONE; -LACTATED RINGER'S 1000 ML IV PRN; -LIDOCAINE 1%/EPINEPHrine 1:100,000 SOLN 30 ML VIAL ONE; -LIDOCAINE HCL 1% PF 5 ML SYRINGE OTHER ONE; -METOPROLOL TARTRATE 25 MG TAB PO PRN; -MIDAZOLAM HCL 2 MG/2 ML VIAL ONE; -NEOSTIGMINE 5 MG/5 ML SYRINGE IV PUSH ONE; -ONDANSETRON HCL 4 MG/2 ML VIAL IV PUSH ONE; -PHENYLEPH/NS 1000 MCG/10 ML SYR IV ONE; -POVIDONE IODINE 5% (ANTISEPSIS KIT) 4 APPLICATIONS EACH NARE PRN; -PROPOFOL 200 MG/20 ML AMP IV ONE; -ROBA500T PO; -SILVER NITR/POTASSIUM NITRATE APPLICATORS ONE; -SODIUM CHLORID 0.9% 500 ML IV PRN; -VASOPRESSIN 20 UNITS/ML VIAL ONE; -ceFAZolin INJ 1,000 MG VIAL IV ONE; -ePHEDrine/NS 25 MG/5 ML SYRINGE IV ONE; -oxyCODONE/ACETAMINOPHEN 5 MG/325 MG TAB PO PRN
[2017-09-28 20:10] VITALS: BP 135/83; PULSE 70; RESP 18; TEMP 98.8; O2SAT 98
[2017-09-28 21:27] LABS: BASOPHIL % 0.7 % (0.0-2.0); EOSINOPHIL # 0.2 TH/MM3 (0-0.4); EOSINOPHIL % 3.1 % (0.0-4.0); HEMATOCRIT 37.1 % (35.0-46.0); HEMOGLOBIN 12.8 GM/DL (11.6-15.3); LYMPH % 39.6 % (9.0-44.0); LYMPHOCYTE # 2.7 TH/MM3 (1.0-4.8); MEAN CELL VOLUME 74.8 FL (80.0-100.0); MEAN CORPUSCULAR HEMOGLOBIN 25.8 PG (27.0-34.0); MEAN CORPUSCULAR HGB CONC 34.5 % (32.0-36.0); MEAN PLATELET VOLUME 9.4 FL (7.0-11.0); MONO % 11.4 % (0.0-8.0); MONOCYTE # 0.8 TH/MM3 (0-0.9); NEUT % 45.2 % (16.0-70.0); PLATELET COUNT 240 TH/MM3 (150-450); RED BLOOD COUNT 4.96 MIL/MM3 (4.00-5.30); RED CELL DISTRIBUTION WIDTH 15.7 % (11.6-17.2); WHITE BLOOD COUNT 6.7 TH/MM3 (4.0-11.0)
[2017-09-28 21:34] LABS: ALBUMIN 3.4 GM/DL (3.4-5.0); AST (GOT) 16 U/L (15-37); BICARBONATE 27.4 MEQ/L (21.0-32.0); BLOOD UREA NITROGEN 23 MG/DL (7-18); CALCIUM 9.3 MG/DL (8.5-10.1); CHLORIDE 106 MEQ/L (98-107); CREATININE 1.51 MG/DL (0.50-1.00); GLOMERULAR FILTRATION RATE 43 ML/MIN (>89); GLUCOSE,RANDOM 82 MG/DL (74-106); SODIUM (NA) 142 MEQ/L (136-145)
[2017-09-28 21:36] LABS: PROTHROMBIN TIME - PATIENT 10.5 SEC (9.8-11.6)
[2017-09-28 21:38] LABS: ALKALINE PHOSPHATASE 94 U/L (45-117); ALT (GPT) 20 U/L (10-53); TOTAL BILIRUBIN ADULT 0.3 MG/DL (0.2-1.0); TOTAL PROTEIN 8.2 GM/DL (6.4-8.2)
[2017-09-28 22:04] VITALS: BP 125/84; PULSE 65; RESP 18; O2SAT 100
--- NOTE | 2017-09-28 22:18 | PD ---
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 She had a conization on 08/30. She had a follow up appointment on . Given the biopsy results she was instructed that a hysterectomy was recommended. She plans to schedule this for December 2017. She was also having vaginal odor and discharge. She was d/x with a bacterial vaginal infection and treated with a course of CIPRO that she finished last week. The vaginal odor has resolved. The bleeding consists of spotting. The patient reports that she returned to work after this procedure yesterday and she believes that the standing that she does not work is contributing to her spotting. On review of systems otherwise, the patient denies having any known recent fevers, cough, congestion, neck pain, chest pain, shortness of breath, abdominal pain, vomiting , diarrhea, urinary symptoms, or neurologic symptoms. [facility] Past Medical History Narrative Medical The patient's past medical history is significant for hypertension, hyperlipidemia, and cervical dysplasia. PMD: Dr. Nuno. Arthritis: Yes Autoimmune Disease: No Anxiety: No Depression: No Heart Rhythm Problems: Yes Cancer: Yes (HX OF MASS ON RIGHT KIDNEY) Cardiac Catheterization: No Cardiovascular Problems: No High Cholesterol: Yes Chest Pain: Yes Diabetes: No Diminished Hearing: No Endocrine: No Gastrointestinal Disorders: No Glaucoma: No Genitourinary: No Hepatitis: No Hiatal Hernia: No Hypertension: Yes Immune Disorder: No Musculoskeletal: Yes (OA) Neurologic: No Psychiatric: No Reproductive: Yes (PRE CA CELLS) Respiratory: Yes (HX BRONCHITIS, SLEEP APNEA-DOES NOT USE MACHINE) Integumentary: No Immunizations Current: Yes Sickle Cell Disease: No Sleep Apnea: Yes (CPAP AT NIGHT) Thyroid Disease: No PNEUMOCCOCAL Vaccine (Year): 1 Menopausal: Yes : 2 Para: 2 Miscarriage: 0 : 0 Tubal Ligation: Yes Past Surgical History Narrative Surgical The patient's past surgical history is significant for BTL, 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 Abdominal Surgery: No AICD: No Cardiac Surgery: No Coronary Artery Bypass Graft: No Ear Surgery: No Endocrine Surgery: No Eye Surgery: No Genitourinary Surgery: Yes (RIGHT NEPHRECTOMY) Gynecologic Surgery: Yes (TUBAL LIGATION , uterine scraping aug 2017) Joint Replacement: No Oral Surgery: No Pacemaker: No Thoracic Surgery: No Other Surgery: Yes (R KIDNEY REMOVED) Family History Family Myocardial Infarction: Yes Social History Alcohol Use: Yes (occasionally) Tobacco Use: No Substance Use: No Allergies-Medications (Allergen,Severity, Reaction): Coded Allergies: diclofenac (Unverified Allergy, Intermediate, ITCHING, 09/28/17) Reported Meds & Prescriptions Reported Meds & Active Scripts Active Losartan (Losartan Potassium) 25 Mg Tab 25 Mg PO DAILY Review of Systems Except as stated in HPI: all other systems reviewed are Neg General / Constitutional: No: Fever Eyes: No: Visual changes HENT: No: Headaches Cardiovascular: No: Chest Pain or Discomfort Respiratory: No: Shortness of Breath Gastrointestinal: No: Nausea, Vomiting, Diarrhea, Abdominal Pain Genitourinary: Positive: Vaginal Bleeding, No: Dysuria Musculoskeletal: No: Pain Skin: No Rash Neurologic: No: Weakness Psychiatric: No: Depression Endocrine: No: Polydipsia Hematologic/Lymphatic: No: Easy Bruising Physical Exam Narrative General: The patient is a well-developed well-nourished female in no acute distress. Head and Neck exam: Head is normocephalic atraumatic. Eyes: EOMI, pupils are equal round and reactive to light. Nose: Midline septum with pink mucous membranes Mouth: Dentition unremarkable. Moist mucus membranes. Posterior oropharynx is not erythematous. No tonsillar hypertrophy. Uvula midline. Airway patent. Neck: No palpable lymphadenopathy. No nuchal rigidity. No thyromegaly. Cardiovascular: Regular rate and rhythm without murmurs, gallops, or rubs. Lungs: Clear to auscultation bilaterally. No wheezes, rhonchi, or rales. Abdomen: Soft, without tenderness to palpation in all 4 quadrants of the abdomen. No guarding, rebound, or rigidity. Normal bowel sounds are audible. No tenderness on palpation of McBurney's point. Extremities: No clubbing, cyanosis, or edema. 2+ pulses in all 4 extremities. No calf tenderness on palpation. Back: No costovertebral angle tenderness to palpation. Neurologic Exam: Grossly nonfocal. Skin Exam: No rash noted. Intact skin that is warm and dry. Gynecologic exam: The patient was placed in the dorsal lithotomy position. Her external genitalia were examined. She had no evidence of rash or lesions. The speculum was placed into her vagina and the cervix was identified. She had some cervical friability noted with a mild amount of bleeding. A culture was done of the secretions in the vagina to evaluate for possible underlying infection. On Bimanual exam: she has no cervical motion tenderness. No adnexal tenderness or prominence noted on palpation. No uterine tenderness or enlargement noted on palpation. Data Data Last Documented VS Vital Signs Date Time Temp Pulse Resp B/P (MAP) Pulse Ox O2 Delivery O2 Flow Rate FiO2 09/28/17 22:04 65 18 125/84 (98) 100 Room Air 09/28/17 20:10 98.8 Orders Orders Complete Blood Count With Diff (09/28/17 20:12) Comprehensive Metabolic Panel (09/28/17 20:12) Prothrombin Time / Inr (Pt) (09/28/17 20:12) Act Partial Throm Time (Ptt) (09/28/17 20:12) Urinalysis - C+S If Indicated (09/28/17 20:12) Gc And Chlamydia Pcr (09/28/17 22:18) Wet Prep Profile (09/28/17 22:18) Labs Laboratory Tests Test 09/28/17 00:00 09/28/17 20:25 09/28/17 22:39 Clue Cells (Wet Prep) NONE SEEN Vaginal Trichomonas (Wet Prep) NONE SEEN Vaginal Yeast (Wet Prep) NONE SEEN White Blood Count 6.7 TH/MM3 Red Blood Count 4.96 MIL/MM3 Hemoglobin 12.8 GM/DL Hematocrit 37.1 % Mean Corpuscular Volume 74.8 FL Mean Corpuscular Hemoglobin 25.8 PG Mean Corpuscular Hemoglobin Concent 34.5 % Red Cell Distribution Width 15.7 % Platelet Count 240 TH/MM3 Mean Platelet Volume 9.4 FL Neutrophils (%) (Auto) 45.2 % Lymphocytes (%) (Auto) 39.6 % Monocytes (%) (Auto) 11.4 % Eosinophils (%) (Auto) 3.1 % Basophils (%) (Auto) 0.7 % Neutrophils # (Auto) 3.0 TH/MM3 Lymphocytes # (Auto) 2.7 TH/MM3 Monocytes # (Auto) 0.8 TH/MM3 Eosinophils # (Auto) 0.2 TH/MM3 Basophils # (Auto) 0.0 TH/MM3 CBC Comment DIFF FINAL Differential Comment Prothrombin Time 10.5 SEC Prothromb Time International Ratio 1.0 RATIO Activated Partial Thromboplast Time 26.7 SEC Blood Urea Nitrogen 23 MG/DL Creatinine 1.51 MG/DL Random Glucose 82 MG/DL Total Protein 8.2 GM/DL Albumin 3.4 GM/DL Calcium Level 9.3 MG/DL Alkaline Phosphatase 94 U/L Aspartate Amino Transf (AST/SGOT) 16 U/L Alanine Aminotransferase (ALT/SGPT) 20 U/L Total Bilirubin 0.3 MG/DL Sodium Level 142 MEQ/L Potassium Level 4.4 MEQ/L Chloride Level 106 MEQ/L Carbon Dioxide Level 27.4 MEQ/L Anion Gap 9 MEQ/L Estimat Glomerular Filtration Rate 43 ML/MIN Urine Color YELLOW Urine Turbidity CLEAR Urine pH 5.5 Urine Specific [place] 1.022 Urine Protein NEG mg/dL Urine Glucose (UA) NEG mg/dL Urine Ketones NEG mg/dL Urine Occult Blood SMALL Urine Nitrite NEG Urine Bilirubin NEG Urine Urobilinogen LESS THAN 2.0 MG/DL Urine Leukocyte Esterase SMALL Urine RBC 1 /hpf Urine WBC 5 /hpf Urine Squamous Epithelial Cells 2 /hpf Urine Mucus FEW /lpf Microscopic Urinalysis Comment CULT NOT INDICATED MDM Medical Decision Making Medical Screen Exam Complete: Yes Emergency Medical Condition: Yes Medical Record Reviewed: Yes Differential Diagnosis Postoperative recurrent bleeding, versus vaginal bleeding from vaginitis, versus postmenopausal bleeding related to an endometrial abnormality Narrative Course During the course of the patient's emergency department visit, the patient's history, examination, and differential diagnosis were reviewed with the patient. The patient was placed on a monitor tech with oximetry and frequent blood pressure monitoring. The patient had IV access obtained and blood work sent for analysis. The patient's laboratory studies were reviewed and remarkable for a white count of 6.7, hemoglobin 12.8, platelets 240 with 11.4 monocytes, CMP is remarkable for BUN of 23, creatinine 1.51, PT 10.5, PTT 26.7. Urinalysis shows small occult blood small leukocyte esterase, otherwise unremarkable and culture not indicated. The patient's examination reveals some cervical friability which may be related to her procedure, vaginal secretions were cultured. The patient's wet prep was negative. The patient was instructed to call Dr. Narvaez his office in the morning to schedule a follow-up appointment regarding this emergency department visit. The patient was given a work excuse per her request for tomorrow. The patient is resting comfortably and feels better, is alert and in no distress. The patient's results and examination findings were discussed with the patient. The repeat examination is unremarkable and benign. The history, exam, diagnostic testing, and current condition do not suggest any significant pathology to warrant further testing, continued ED treatment, admission, or surgical evaluation at this point. The vital signs have been stable. The patient does not have uncontrollable pain, intractable vomiting, or other significant symptoms. The patient's condition is stable and appropriate for discharge. The patient will pursue further outpatient evaluation with a primary care physician or other designated or consulting physician as indicated in the discharge instructions. The patient expressed understanding and was agreeable with this plan. Diagnosis Primary Impression: Vaginal bleeding, abnormal Referrals: Monica Narvaez MD 1 day Patient Instructions: Dysfunctional Uterine Bleeding (ED), General Instructions Departure Forms: Tests/Procedures, Work Release Enter return to work date: Oct 02, 2017 Med/Other Pt SpecificInfo: No Change to Meds Disposition: 01 DISCHARGE HOME Condition: Stable Cristina Dubon MD Sep 28, 2017 22:18
[2017-09-28 23:01] LABS: BILIRUBIN, URINE NEG (NEG); BLOOD, URINE SMALL (NEG); GLUCOSE,URINE NEG (NEG); KETONE, URINE NEG (NEG); MUCUS URINE FEW /lpf (OCC); NITRITE,URINE NEG (NEG); PH, URINE 5.5 (5.0-8.5); SQUAMOUS EPITHELIAL CELL URINE 2 /hpf (0-5); URINE COLOR YELLOW (YELLW/STRAW); URINE LEUKOCYTE ESTERASE SMALL (NEG)
== END 2017-09-29 00:43 | disposition home or self-care (01) ==
LOC: NED 19:59 → NEPC 09-29 00:43
DX: N93.9 Abnormal uterine and vaginal bleeding, unspecified (principal); M19.90 Unspecified osteoarthritis, unspecified site; I10 Essential (primary) hypertension; E78.5 Hyperlipidemia, unspecified; E78.00 Pure hypercholesterolemia, unspecified; Z79.899 Other long term (current) drug therapy; Z88.8 Allergy status to other drugs, medicaments and biological substances
CPT/HCPCS: 80053; 81001; 85025; 85610; 85730; 87210; 87491; 87591; 99284

== ENCOUNTER 2017-12-09 07:48 | Observation (INO) | payer OTHER ==
[~2017-12-09] VITALS: Ht 160 cm; Wt 93.5 kg
[2017-12-09] MEDS ORDERED: LIDOCAINE 1%/EPINEPHrine 1:100,000 SOLN 30 ML VIAL ONE (09:10)
[2017-12-09] MEDS ORDERED: CHLORHEXIDINE GLUCONATE 2 % 1 PACK (2 CLOTHS) TOPICAL PRN (09:30)
[2017-12-09] MEDS ORDERED: POVIDONE IODINE 5% (ANTISEPSIS KIT) 4 APPLICATIONS EACH NARE PRN (09:30)
[2017-12-09] MEDS ORDERED: METOPROLOL TARTRATE 25 MG TAB PO PRN (09:30)
[2017-12-09] MEDS ORDERED: SODIUM CHLORID 0.9% 500 ML IV PRN (09:30)
[2017-12-09] MEDS ORDERED: HEPARIN SODIUM - SQ 10,000 UNITS/ML VIAL SQ SCH (09:30)
[2017-12-09] MEDS ORDERED: LACTATED RINGER'S 1000 ML IV PRN (09:30)
[2017-12-09] MEDS ORDERED: SODIUM CHLORIDE FLUSH PRN IV FLUSH (09:30)
[2017-12-09] MEDS ORDERED: ceFAZolin 2 GM/DEX PREMIX 50 ML IV SCH (09:30)
[2017-12-09] MEDS ORDERED: SODIUM CHLORIDE 0.9% 10 ML VIAL IV ONE (12:00)
[2017-12-09] MEDS ORDERED: ROCURONIUM INJ 100 MG/10 ML VIAL IV ONE (12:00)
[2017-12-09] MEDS ORDERED: STERILE WATER FOR INJECTION 20 ML VIAL IV ONE (12:00)
[2017-12-09] MEDS ORDERED: LACTATED RINGER'S 1000 ML INJ 1,000 ML IV ONE (12:00)
[2017-12-09] MEDS ORDERED: LIDOCAINE HCL 1% PF 5 ML SYRINGE OTHER ONE (12:00)
[2017-12-09] MEDS ORDERED: DEXAMETHASONE SOD PHOS 4 MG/ML VIAL IV ONE (12:00)
[2017-12-09] MEDS ORDERED: PROPOFOL 200 MG/20 ML AMP IV ONE (12:00)
[2017-12-09] MEDS ORDERED: ePHEDrine/NS 25 MG/5 ML SYRINGE IV ONE (12:00)
[2017-12-09] MEDS ORDERED: ONDANSETRON HCL 4 MG/2 ML VIAL IV ONE (12:00)
[2017-12-09] MEDS ORDERED: ACETAMINOPHEN 1000 MG/100 ML 100 ML IV ONE (12:57)
[2017-12-09] MEDS ORDERED: SUGAMMADEX SODIUM 200 MG/2 ML VIAL IV PUSH ONE (12:57)
[2017-12-09] MEDS ORDERED: HYDROmorphone HCL PF 2 MG/ML VIAL ONE (14:25)
[2017-12-09] MEDS ORDERED: MIDAZOLAM HCL 2 MG/2 ML VIAL ONE ×2 (14:46→17:16)
[2017-12-09] MEDS ORDERED: METHYLENE BLUE 10 MG/ML VIAL OTHER ONE (15:00)
[2017-12-09] MEDS: D5-1/2 NS + KCL 20 MEQ INJ 1,000 ML IV SCH (16:20)
[2017-12-09] MEDS ORDERED: ONDANSETRON HCL 4 MG/2 ML VIAL IVP PRN (16:30)
[2017-12-09] MEDS ORDERED: SODIUM CHLORIDE 0.9% FLUSH 10 ML FLUSH IV FLUSH PRN (16:30)
[2017-12-09] MEDS ORDERED: LORazepam 0.5 MG TAB PO PRN (16:30)
[2017-12-09] MEDS ORDERED: oxyCODONE/ACETAMINOPHEN 5 MG/325 MG TAB PO PRN (16:30)
[2017-12-09] MEDS ORDERED: NALOXONE HCL 0.4 MG/ML AMP ONE (16:51)
[2017-12-09] MEDS ORDERED: DO NOT ADM ANY ANTICOAGULANT DRUGS PRN (17:00)
[2017-12-09] MEDS ORDERED: *LABETALOL HCL 100 MG/20 ML VIAL PERIprocedural Use ONLY ONE (17:35)
[2017-12-09 20:00] VITALS: PULSE 65
[2017-12-09 20:30] VITALS: BP 140/81; PULSE 80; RESP 22; TEMP 97.9; O2SAT 98
[2017-12-09] MEDS ORDERED: SODIUM CHLORIDE FLUSH BID IV FLUSH SCH (21:00)
[2017-12-09] MEDS: SODIUM CHLORIDE 0.9% FLUSH 10 ML FLUSH IV FLUSH SCH (21:00)
[2017-12-09] MEDS: oxyCODONE/ACETAMINOPHEN 5 MG/325 MG TAB PO PRN (21:55)
[2017-12-09] MEDS: KETOROLAC TROMETHAMINE 30 MG/ML (IVP) VIAL IVP SCH (21:55)
[2017-12-10] VITALS (7 sets, daily range): BP systolic 120–153; BP diastolic 76–93; PULSE 53–65; RESP 18–22; TEMP 98.1–98.4; O2SAT 94–100
[2017-12-10] MEDS: KETOROLAC TROMETHAMINE 30 MG/ML (IVP) VIAL IVP SCH ×2 (03:43→11:24)
[2017-12-10] MEDS: D5-1/2 NS + KCL 20 MEQ INJ 1,000 ML IV SCH ×2 (03:44→12:20)
[2017-12-10 04:47] LABS: AUTOMATED NEUTROPHIL # 9.2 TH/MM3 (1.8-7.7); HEMATOCRIT 36.2 % (35.0-46.0); HEMOGLOBIN 12.2 GM/DL (11.6-15.3); LYMPHOCYTE # 1.1 TH/MM3 (1.0-4.8); MEAN CELL VOLUME 75.6 FL (80.0-100.0); MEAN CORPUSCULAR HEMOGLOBIN 25.4 PG (27.0-34.0); MEAN CORPUSCULAR HGB CONC 33.6 % (32.0-36.0); MEAN PLATELET VOLUME 9.1 FL (7.0-11.0); MONO % 6.2 % (0.0-8.0); MONOCYTE # 0.7 TH/MM3 (0-0.9); NEUT % 83.8 % (16.0-70.0); PLATELET COUNT 231 TH/MM3 (150-450); RED BLOOD COUNT 4.78 MIL/MM3 (4.00-5.30); RED CELL DISTRIBUTION WIDTH 15.6 % (11.6-17.2)
[2017-12-10 05:03] LABS: BICARBONATE 26.7 MEQ/L (21.0-32.0); CALCIUM 8.6 MG/DL (8.5-10.1); CREATININE 1.18 MG/DL (0.50-1.00)
[2017-12-10] MEDS ORDERED: OXYC1TAB63 PO (06:41)
--- NOTE | 2017-12-10 07:11 | MD ---
cc: Monica Narvaez MD,Salvador Frederick,Artur Bee MD DATE OF DISCHARGE: PROCEDURE PERFORMED: On 12/09/2017, robotic-assisted laparoscopic hysterectomy, bilateral salpingo-oophorectomy, extensive lysis of adhesions. 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 HOSPITAL COURSE: She did well in early postoperative period, remained hemodynamically stable, tolerating oral intake. Klein catheter removed pending voiding. Ins and outs 1840/1110. Labs this morning show an H and H of 12.2 and 32.2. Electrolytes: Potassium 4.7. Creatinine is 1.18 (with baseline preop creatinine of 1.4). PHYSICAL EXAMINATION: VITAL SIGNS: Afebrile, pulse 53-80, respirations 12-22, blood pressure 128-156/76-93, O2 saturations greater than or equal to 98%. GENERAL: She is alert, comfortable, in no acute distress. LUNGS: Clear to auscultation bilaterally. Mild basilar rales. CARDIOVASCULAR: Regular rate and rhythm. ABDOMEN: Soft. Incisions clean and dry. GYNECOLOGIC: No bleeding. EXTREMITIES: Nontender. ASSESSMENT: Postoperative day number 1, doing well in early postoperative period. Preliminary findings, pathology and steps taken at surgery discussed. Activities and restrictions reviewed. Questions were asked and answered. She expressed good understanding and agreed. PLAN: Anticipate she will meet criteria for discharge to home today. She is to contact our office to schedule followup in approximately 2 weeks. She is to resume prior medications. She will have a prescription for Percocet. She is asked to call our office should she have any problems or concerns. MD JERRI Ellis/EFRAIN , 06:46 AM , 07:10 AM
--- NOTE | 2017-12-10 07:45 | MP ---
cc: Monica Narvaez MD, Joshua D MD Scaglia, Bennett P MD DATE OF OPERATION: 12/09/2017 DATE OF PROCEDURE: 12/09/2017. PREOPERATIVE DIAGNOSIS: Cervical carcinoma in situ. POSTOPERATIVE DIAGNOSES: 1. Cervical carcinoma in situ. 2. Extensive intraperitoneal and pelvic adhesions. PROCEDURE: Robotic-assisted laparoscopic hysterectomy, bilateral salpingo-oophorectomy, and extensive lysis of adhesions. SURGEON: Monica Narvaez MD VENEER CUTTER: Trevon emergency room physician assistant. ANESTHESIA: General endotracheal anesthesia. ESTIMATED BLOOD LOSS: 150 mL. IV FLUIDS: 1400 mL. URINE OUTPUT: 100 mL. HISTORY: This is a 57-year-old female who has healed up well from prior conization of the cervix, which showed extensive carcinoma in situ, no evidence of invasion. She was counseled regarding options and was in favor of definitive surgical management. She has been counseled extensively. She is seen again in the preop holding area accompanied by her mother, where the findings and plan of care are again discussed and reviewed, risks and benefits summarized. She expressed good understanding and would like to move forward with surgery. FINDINGS: Upon entry into the peritoneal cavity, the omentum and ascending and right colon are all densely adherent to the anterior and right abdominal wall. The colon is adherent to the left pelvic sidewall with some fixation overlying the left adnexa, with adhesions in the posterior cul-de-sac. There are no obvious peritoneal implants. There is no obvious adenopathy. The uterus, once removed, was inspected and showed no overt neoplastic change within that specimen. The ovaries and tubes grossly appeared normal. There was some diverticulum noted in the descending colon, some adhesions adjacent to the colon suggesting a prior history of diverticulitis, but no evidence of active diverticulitis. STATEMENT OF COMPLEXITY, MODIFIER: The complexity of this case was increased due to extensive intraperitoneal adhesions consistent with her prior surgical and/or inflammatory history, requiring significant additional time lysing adhesions to gain safe entry into the peritoneal cavity, to restore normal anatomy, and to accomplish surgical objectives. Modifier should be applied accordingly. DESCRIPTION OF PROCEDURE: She was taken to the operating room and placed in dorsal lithotomy position after general endotracheal anesthesia was administered. A timeout was undertaken. She was identified by site recognition and [email or web address], and the proposed procedure was reviewed and confirmed. She was carefully positioned in padded Minh stirrups. Her arms were padded and secured to the sides. She was further secured to the operating table with egg-crate padding and tape in a cross-chest [id number] fashion. All sites noted to be properly aligned with no malalignment or pressure points. She was prepped and draped in usual sterile fashion, placed in lithotomy position. The cervix was grasped. Uterine cavity was sounded, cervix dilated, and a standard VCare manipulator was inserted and secured in usual fashion. Klein catheter placed in the bladder. She was returned to low lithotomy position. We confirmed that an orogastric tube was in the stomach on suction. We completed draping in anticipation of laparoscopy. With manual elevation of the abdominal wall and direct laparoscopic visualization, 5 mm cannula was introduced into the left upper quadrant. Carbon dioxide gas was insufflated and an atraumatic entry was confirmed. A left lateral quadrant 8 mm cannula was introduced, and now with blunt and sharp dissection, extensive lysis of adhesions was carried out to take down the omentum and the ascending and right colon, which were densely adherent to the anterior and right abdominal wall, consistent with her prior right nephrectomy. Small bleeders were rendered hemostatic with cautery. Now a 12 mm cannula was placed in the midline above the umbilicus, and 8 mm cannulas were placed in the right upper quadrant. She was placed in Trendelenburg position. The small bowel was folded back on its mesenteric root and 3 Ray-Fercho sponges were placed around the root of the small bowel mesentery. The robotic system was brought into the operative field and attached in the usual fashion. Monopolar scissors, fenestrated bipolar forceps and ProGrasp manipulators were placed in arms #1, 2, and 3 respectively. I took my place at the surgeon's console. Additional adhesions were lysed to mobilize the cecum and terminal ileum. The right round ligament was isolated, cauterized and transected. The anterior and posterior leafs of the broad ligament were opened. The intervening peritoneum was opened as the infundibulopelvic ligament was elevated ventrally, isolated, and the infundibulopelvic ligament was cauterized and transected. Posterior peritoneum opened along the right side of the uterus and cervix, and the right vesicouterine peritoneum was dissected off the lower uterine segment and cervix. The right uterine vessels were skeletonized, cauterized and transected, as were the cardinal, paracervical and uterosacral ligaments. Attention was directed toward the left side. Adhesions were taken down to free the colon, which was adherent to the left pelvic sidewall overlying the left adnexa. Adhesiolysis was continued to free the posterior cul-de-sac and to help mobilize the colon above the level of the pelvic brim to isolate the gonadal vessels to that level. Left round ligament was isolated, cauterized and transected. The anterior and posterior leafs of the broad ligament were further dissected. The left ureter was identified. The left infundibulopelvic ligament was isolated and elevated as the intervening peritoneum was opened. The infundibulopelvic ligament was isolated to the level of the pelvic brim, where it was cauterized and transected. Posterior peritoneum opened along the left side of the uterus and cervix, and the left vesicouterine peritoneum was dissected off the lower uterine segment and cervix. Left uterine vessels were skeletonized, cauterized and transected, as were the cardinal, paracervical and uterosacral ligaments. Colpotomy was performed, the cervix from the upper vagina, and the specimen was withdrawn transvaginally which included uterus, cervix, tubes and ovaries, and a pneumo-occluder balloon was placed in the vagina to maintain pneumoperitoneum. Instruments 1 and 3 were exchanged for needle driver education road instructor as a 0 Vicryl suture was introduced. The vaginal cuff was closed starting at the left corner for full-thickness closure, incorporating the edge of the uterosacral ligament, posterior peritoneum, tied via instrument tie. The closure was held on countertraction as a full-thickness running continuous closure was carried across the vaginal apex to the contralateral corner, where it was similarly fixed, secured and tied. The needle was cut and removed. The pelvis was thoroughly irrigated. Small bleeders were rendered hemostatic with bipolar cautery. The integrity of the bladder was confirmed by filling the bladder with saline dyed with methylene blue. The bladder distended nicely under pressure. There were no areas of thinning, no visibility of blue, and certainly no extravasation of dye. There was a good margin between the vaginal cuff and the bladder edge, good peristalsis of the left ureter, and the bladder was drained. Hemostatic Surgicel was placed across the vaginal cuff and in the lateral pelvic sidewalls. The robotic instruments were removed. The robotic system was disengaged from the operative field and I reentered the bedside under sterile condition. Each of the 3 Ray-Fercho sponges that were placed in the peritoneal cavity were removed individually and inspected and noted to be removed in their entirety. Visual inspection confirmed no remaining foreign objects in the peritoneal cavity other than the intentionally placed Surgicel, and preliminary counts were correct. The 12 mm fascial defect was closed with interrupted 0 Vicryl sutures using a fascia closure needle apparatus. They were tied securely, which rendered the fascia completely airtight and hemostatic. The remaining cannulas were withdrawn. Carbon dioxide gas was removed from the peritoneal cavity. 3-0 Vicryl subcutaneous and 3-0 Vicryl subcuticular were used to close the skin edges. Steri-Strips were placed over these incisions. She was placed in lithotomy position. Pelvic exam confirmed the vaginal cuff was well supported, completely hemostatic. There were no vaginal lacerations, no remaining foreign objects in the vagina. Final counts were correct. She was returned to the dorsal supine position pending reversal of anesthesia, and I preceded her to the postanesthesia care unit to speak to her family member who was waiting in the surgical waiting area. MD JERRI Ellis/ESTEBAN , 07:05 AM , 07:44 AM
[2017-12-10] MEDS: oxyCODONE/ACETAMINOPHEN 5 MG/325 MG TAB PO PRN ×2 (08:15→13:34)
[2017-12-10] MEDS ORDERED: LOSARTAN 25 MG TAB PO SCH (09:00)
[2017-12-10] MEDS: SODIUM CHLORIDE 0.9% FLUSH 10 ML FLUSH IV FLUSH SCH (09:00)
== END 2017-12-10 14:58 | disposition home or self-care (01) ==
LOC: HSDC 07:48 → HSDI 18:31 → HCIN 18:35
PROVIDERS: ADMIT Obstetrics & Gynecology Gynecologic Oncology; ATTEND Obstetrics & Gynecology Gynecologic Oncology
DX: D06.9 Carcinoma in situ of cervix, unspecified (principal); N73.6 Female pelvic peritoneal adhesions (postinfective); K66.0 Peritoneal adhesions (postprocedural) (postinfection); I10 Essential (primary) hypertension; E66.9 Obesity, unspecified; Z79.899 Other long term (current) drug therapy
CPT/HCPCS: 00840; 58552; 80048; 85025; 86850; 86900; 86901; 88307; 88329; 94150; 96374; 96376; G0378; J0131; J0690; J1100; J1170; J1644; J1885; J2250; J2310; J2405; J3010; J3480; J7120; S2900; 88331